=== PATIENT | female | born 1950 | race Caucasian/White ===

== ENCOUNTER 2025-08-04 13:43 | Emergency (ER) | payer MEDICARE, BC, SELFPAY ==
[2025-08-04 16:01] VITALS: BMI 20.4
[2025-08-04] MEDS: TORADOL 15 MG IM (17:43)
--- NOTE | 2025-08-04 17:49 | ED.GENMED ---
History of Present Illness
General
Chief Complaint: Fall
Time Seen by Provider: 08/04/25 16:47
History of Present Illness
History of Present Illness:
75-year-old female with history of chronic back pain presenting to the emergency department for left-sided rib pain. Patient reports prior to arrival she fell forward, landing on the left chest wall and ribs. She since has had pain with any type
of deep inspiration. Pain radiates to her shoulder. Denies any prodromal symptoms such as lightheadedness, dizziness, chest pain or difficulty breathing prior to the fall. Denies any head injury or loss of consciousness. She did not take any
pain medications prior to arrival. Denies additional acute medical complaints or injuries.
Phy Exam
Physical Exam
Physical Exam:
General: Well-appearing, no clinical signs of dehydration, nontoxic and in no acute distress
HEENT: protecting airway
Neck: appears supple, no midline tenderness
CV: Normal heart rate, regular rhythm
Resp: No accessory muscle use, no increased work of breathing, lungs clear to auscultation bilaterally. Generalized tenderness to the left chest wall anteriorly and extending into the mid axillary region. No ecchymosis. No overlying skin changes.
No crepitus.
Abd: Soft and non-distended, no tenderness to palpation
Extremities: No deformities, no swelling
Neuro: alert, no focal neurologic deficit
: deferred
Rectal: deferred
Psych: Normal affect
Skin: Intact
Course
Orders/Labs/Results
Orders:
Orders
08/04/25 13:49
CR Shoulder, Trauma - Left Urgent
Comment:
Reason For Exam: fall, chest and shoulder pain
CR Shoulder, Trauma - Right Urgent
Comment:
Reason For Exam: fall, chest and shoulder pain
Ribs, Keven 4 View W/PA Chest [CR Ribs-keven 4 Vw W/pa Chest] Urgent
Comment:
Reason For Exam: fall, chest and shoulder pain
08/04/25 17:38
Ketorolac [Toradol] 15 mg IM NOW STA
08/04/25 17:39
Incentive Spirometry [Rx Incentive Spirometry] [RESP] Urgent
Frequency: q1h while awake
MDM/Problems Addressed
MDM/Problems Addressed:
75-year-old female presenting for left-sided rib pain after a fall prior to arrival. Vital signs on arrival are normal.
On exam, patient is resting comfortably, no acute distress, however is splinting secondary to pain. Reproducible tenderness to the left anterior chest wall and mid axillary region with suspicion for rib fracture versus contusion. Lower suspicion
for pneumothorax, maintaining normal oxygen saturation, lungs clear to auscultation bilaterally. No signs of head injury, no midline cervical neck tenderness. No concern for syncope or near syncope, patient denies any prodromal symptoms, notes
that she tripped. Plan for x-ray imaging of the ribs and shoulder
17:50 - No sign of rib fracture. No sign of shoulder fracture. At this time continue to suspect contusion. Toradol ministered for pain. Will provide incentive spirometry. Communicated importance of continued pain control and use of incentive
spirometry. Strict return precautions communicated to patient verbalized understanding
*Pulse Oximetry
Patient hypoxic: no
*Critical Care Note
Total Time (30-74mins, 75-104mins- exclusive of procedures): Not Applicable
ED Attending Note
-
Portions of this chart may have been created with voice recognition software.� Occasional wrong word or��sound alike� substitutions may have occurred due to the inherent limitations of voice recognition software.
Discharge Plan
Departure
Referrals:
Lola Polanco MD [Family Provider, Family Practice]
Interventions
Interventions:
*Risk Screen - Suicide Last Done: 08/04/25 13:48
*General Assessment Last Done: 08/04/25 13:48
*Neglect/Abuse Screening Last Done: 08/04/25 13:48
*ED- Fall Risk Assessment Last Done: 08/04/25 16:01
*ED COVID-19 Vaccine History Last Done: 08/04/25 13:48
*ED Influenza Vaccine History Last Done: 08/04/25 13:48
ED-Musculoskeletal Assessment Last Done: 08/04/25 16:02
ED- Neurological Assessment Last Done: 08/04/25 16:02
ED-Skin Assessment Last Done: 08/04/25 16:02
Discharge Date and Time
Print Language: ITALIAN
[2025-08-04 17:56] VITALS: BP 156/79
== END 2025-08-04 18:02 | disposition home or self-care (01) ==
LOC: EMR 13:43
PROVIDERS: EMERGENCY PHYSICIAN Student in an Organized Health Care Education/Training Program; FAMILY PHYSICIAN Family Medicine
DX: S20.212A Contusion of left front wall of thorax, initial encounter (principal); W01.0XXA Fall on same level from slipping, tripping and stumbling without subsequent striking against object, initial encounter; M54.9 Dorsalgia, unspecified; G89.29 Other chronic pain
CPT/HCPCS: 99284; 96372; 71111; 73030